=== PATIENT | female | born 1990 | race Caucasian/White ===

== ENCOUNTER 2020-11-12 08:35 | Emergency (ER) | payer MEDICAID ==
[~2020-11-12] VITALS: Ht 162.6 cm; Wt 70.5 kg
[2020-11-12 08:38] VITALS: BP 114/75
== END 2020-11-12 10:52 | disposition home or self-care (01) ==
LOC: ER 08:36
DX: Z00.00 Encounter for general adult medical examination without abnormal findings (principal); F15.90 Other stimulant use, unspecified, uncomplicated
CPT/HCPCS: 99281

== ENCOUNTER 2020-11-24 22:39 | Emergency (ER) | payer MEDICAID ==
[~2020-11-24] VITALS: Ht 162.6 cm; Wt 70.5 kg
[2020-11-24 23:57] LABS: ALANINE AMINOTRANSFERASE 20 U/L (12-78); ALBUMIN 3.9 G/DL (3.4-5.0); ALKALINE PHOSPHATASE 79 IU/L (46-116); ANION GAP 11 (8-16); ASPARTATE AMINO TRANSFERASE 12 U/L (10-37); BILIRUBIN,TOTAL 0.2 MG/DL (0.1-1.0); BLOOD UREA NITROGEN 19 MG/DL (7-18); BUN/CREATININE RATIO 24.1 (6.6-38.0); CALCIUM 8.8 MG/DL (8.5-10.1); CHLORIDE 104 MMOL/L (99-107); CREATININE 0.79 MG/DL (0.40-0.90); GLUCOSE 113 MG/DL (70-104); POTASSIUM 3.3 MMOL/L (3.5-5.1); SODIUM 141 MMOL/L (135-145); TOTAL CARBON DIOXIDE 25.8 MMOL/L (24-32); TOTAL PROTEIN 7.7 G/DL (6.4-8.2); eGFR 87 ML/MIN
[2020-11-25 00:04] LABS: BASOPHILS % (AUTO) 0.3 % (0-1); EOSINOPHILS # (AUTO) 0.2 X10'3 (0-0.9); EOSINOPHILS % (AUTO) 2.4 % (0-6); HEMATOCRIT 37.8 % (35.0-45.0); HEMOGLOBIN 12.5 g/dl (12.0-16.0); LYMPHOCYTES # (AUTO) 2.8 X10'3 (1.1-4.8); LYMPHOCYTES % (AUTO) 27.1 % (21-51); MEAN CORPUSCULAR HEMOGLOBIN 26.3 PG (27.0-31.0); MEAN CORPUSCULAR HGB CONC 32.9 g/dL (33.0-36.5); MEAN CORPUSCULAR VOLUME 79.9 FL (78-98); MONOCYTES # (AUTO) 0.5 X10'3 (0-0.9); MONOCYTES % (AUTO) 5.3 % (2-12); NEUTROPHILS # (AUTO) 6.6 X10'3 (1.8-7.7); NEUTROPHILS % (AUTO) 64.9 % (42-75); PLATELET COUNT 255 X10'3 (140-440); RED BLOOD COUNT 4.73 X10'6 (4.20-5.60); RED CELL DISTRIBUTION WIDTH 15.3 % (11.5-14.5); WHITE BLOOD COUNT 10.2 X10'3 (4.5-11.0)
[2020-11-25 01:38] LABS: URINE AMPHETAMINE SCREEN NEGATIVE (Neg); URINE BARBITUATE SCREEN NEGATIVE (Neg); URINE BENZODIAZEPINES SCREEN NEGATIVE (Neg); URINE CANNABINOID SCREEN POSITIVE (Neg); URINE COCAINE SCREEN NEGATIVE (Neg); URINE METHADONE SCREEN NEGATIVE (Neg); URINE OPIATE SCREEN NEGATIVE (Neg); URINE PHENCYCLIDINE SCREEN NEGATIVE (Neg)
[2020-11-25 02:32] VITALS: BP 115/75
== END 2020-11-25 02:35 | disposition home or self-care (01) ==
LOC: ER 22:39
DX: R41.82 Altered mental status, unspecified (principal); Z86.69 Personal history of other diseases of the nervous system and sense organs
CPT/HCPCS: 36415; 71045; 80053; 80305; 84484; 85025; 93005; 99285

== ENCOUNTER 2020-12-01 07:58 | Emergency (ER) | payer MEDICAID ==
[~2020-12-01] VITALS: Ht 162.6 cm; Wt 68.6 kg
[2020-12-01 08:11] VITALS: BP 106/64
[2020-12-01] MEDS ORDERED: acetaminophen 325mg tablet PO ONE (08:45)
[2020-12-01] MEDS ORDERED: cephalexin 250mg capsule PO ONE (08:45)
[2020-12-01] MEDS ORDERED: phenazopyridine 100mg tablet PO ONE (08:45)
[2020-12-01] MEDS ORDERED: CEPH-585 PO (08:46)
[2020-12-01] MEDS ORDERED: NITR100C6 PO (08:46)
[2020-12-01] MEDS ORDERED: PHEN-716 PO (08:46)
[2020-12-01 09:03] LABS: CLARITY,URINE SLIGHTLY CLOUDY (Clear); COLOR,URINE YELLOW (Yellow); GLUCOSE, URINE NEGATIVE (Neg); KETONES,URINE NEGATIVE (Neg); LEUKOCYTE ESTERASE ,URINE NEGATIVE (Neg); NITRITES, URINE NEGATIVE (Neg); OCCULT BLOOD,URINE NEGATIVE (Neg); PROTEIN,URINE NEGATIVE (Neg); UROBILINOGEN,URINE 0.2 E.U/dL (0.2-1.0)
[2020-12-01 09:04] LABS: URINE HCG NEGATIVE (NEG)
[2020-12-01 09:07] LABS: UA COLLECTION TYPE CLN CATCH MIDSTREAM
[2020-12-01 09:08] LABS: BACTERIA,URINE NONE SEEN /HPF (Neg); RBC,URINE NONE SEEN /HPF (0-2); WBC,URINE 0-4 /HPF (0-4)
[2020-12-01 09:09] LABS: MUCUS STRANDS FEW /LPF (Neg); SQUAMOUS EPITHELIAL CELL,UR FEW /LPF (FEW)
== END 2020-12-01 08:56 | disposition home or self-care (01) ==
LOC: ER 07:59
DX: N39.0 Urinary tract infection, site not specified (principal); R10.2 Pelvic and perineal pain; R10.84 Generalized abdominal pain; Z86.69 Personal history of other diseases of the nervous system and sense organs; Z79.2 Long term (current) use of antibiotics; Z79.899 Other long term (current) drug therapy
CPT/HCPCS: 81001; 81025; 99284

== ENCOUNTER 2021-01-08 16:28 | Emergency (ER) | payer MEDICAID ==
[~2021-01-08] VITALS: Ht 165.1 cm; Wt 68.2 kg
[~2021-01-08 16:28] MED LIST: CEPH-585 PO; NITR100C6 PO; PHEN-716 PO
[2021-01-08 16:41] VITALS: BP 150/65
--- NOTE | 2021-01-08 16:44 | NUR ---
Md Ramos in room while triage. Pt will be discharge
[2021-01-08] MEDS ORDERED: ERYT1OIN6 LEFTEYE (16:49)
== END 2021-01-08 17:29 | disposition home or self-care (01) ==
LOC: ER 16:29
DX: H00.014 Hordeolum externum left upper eyelid (principal); G43.909 Migraine, unspecified, not intractable, without status migrainosus; Z79.2 Long term (current) use of antibiotics; Z79.899 Other long term (current) drug therapy
CPT/HCPCS: 99283

== ENCOUNTER 2021-07-15 13:27 | Emergency (ER) | payer MEDICAID ==
[~2021-07-15] VITALS: Ht 162.6 cm; Wt 86.4 kg
[2021-07-15 14:11] VITALS: BP 113/70
[2021-07-15] MEDS ORDERED: AMOX875T2 PO (14:30)
[2021-07-15] MEDS ORDERED: GUAI600T45 PO (14:31)
== END 2021-07-15 14:41 | disposition home or self-care (01) ==
LOC: ER 13:29
DX: H66.92 Otitis media, unspecified, left ear (principal); R09.89 Other specified symptoms and signs involving the circulatory and respiratory systems; Z86.69 Personal history of other diseases of the nervous system and sense organs; Z79.2 Long term (current) use of antibiotics; Z79.899 Other long term (current) drug therapy
CPT/HCPCS: 99283

== ENCOUNTER 2023-12-09 08:10 | Emergency (ER) | payer MEDICAID ==
[~2023-12-09] VITALS: Ht 162.6 cm; Wt 70.5 kg
[~2023-12-09 08:10] MED LIST changes: +AMOX875T2 PO; -CEPH-585 PO; +GUAI600T45 PO
[2023-12-09 08:18] VITALS: BP 125/64; PULSE 55; TEMP 98.1; O2SAT 100
[2023-12-09] MEDS ORDERED: TIZA4TAB11 PO (09:07)
[2023-12-09] MEDS ORDERED: NAPR-56 PO (09:07)
[2023-12-09 09:31] VITALS: RESP 16
[2023-12-09] MEDS: ketorolac trometh. 30mg/ml inj. IM ONE (09:31)
== END 2023-12-09 09:36 | disposition home or self-care (01) ==
LOC: ER 08:10
DX: M54.2 Cervicalgia (principal); Z79.899 Other long term (current) drug therapy
CPT/HCPCS: 72040; 96372; 99283; J1885; A6213; A6449